=== PATIENT | male | born 1995 | race Hispanic/Latino ===

== ENCOUNTER 2020-02-07 14:16 | Emergency (ER) | payer OTHER, SELFPAY ==
[2020-02-08 12:19] LABS: SARS-CoV-2 MS2 Positive; SARS-CoV-2 N Gene Negative; SARS-CoV-2 S Gene Negative; SARS-CoV-2 orf1ab Negative
== END 2020-02-07 15:47 | disposition home or self-care (01) ==
LOC: ERS 14:16
DX: Z20.828 Contact with and (suspected) exposure to other viral communicable diseases (principal)
CPT/HCPCS: 87635; 99283; U0003

== ENCOUNTER 2022-08-11 13:02 | Emergency (ER) | payer OTHER, SELFPAY ==
[2022-08-11] MEDS ORDERED: Ketorolac Tromethamine 30 MG/ML VIAL ONE (15:42)
== END 2022-08-11 16:24 | disposition home or self-care (01) ==
LOC: ERS 13:02
DX: J01.90 Acute sinusitis, unspecified (principal)
CPT/HCPCS: 96372; 99283; J1885